=== PATIENT | male | born 1965 | race Two or more races ===

== ENCOUNTER 2021-04-02 11:33 | Emergency (ER) | payer MEDICAID ==
[~2021-04-02] VITALS: Ht 162.6 cm; Wt 80.7 kg
[2021-04-02 11:45] VITALS: BP_SYST 184
--- NOTE | 2021-04-02 11:45 | NUR ---
Pt to bed 5 for evaluation. Report given to RONNIE Mckay who will assume care.
--- NOTE | 2021-04-02 11:46 | NUR ---
Came in ER ambulatory this 55 year old, male, c/o pain at left face [id number] radiating to the left side of the nape, hx of Bels palsy. Alert, orientedx4, respiration even/unlabored, no acute distress noted, skin warm/dry, steady gait. w/ left face deviation secondary to disease process.
--- NOTE | 2021-04-02 12:10 | NUR ---
Seen and examined by Dr. Dennison
--- NOTE | 2021-04-02 13:08 | NUR ---
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
[2021-04-02 13:18] LABS: BASOPHILS # (AUTO) 0.1 K/uL (0.0-0.2); BASOPHILS % (AUTO) 0.9 % (0.0-2.0); EOSINOPHILS # (AUTO) 0.1 K/uL (0.0-0.4); EOSINOPHILS % (AUTO) 1.2 % (0.0-4.0); HEMATOCRIT 43.6 % (36-54); HEMOGLOBIN 15.1 g/dL (14.0-18.0); LYMPHOCYTES # (AUTO) 1.7 K/uL (1.0-5.5); MEAN CORPUSCULAR HEMOGLOBIN 31 pg (27-31); MEAN CORPUSCULAR HGB CONC 35 % (32-36); MEAN CORPUSCULAR VOLUME 88 fL (79.0-98.0); MONOCYTES # (AUTO) 0.7 K/uL (0.0-1.0); MONOCYTES % (AUTO) 8.5 % (1.7-9.3); NEUTROPHILS # (AUTO) 5.6 K/uL (1.8-7.7); NEUTROPHILS % (AUTO) 68.4 % (40.0-70.0); PLATELET COUNT (AUTO) 322 K/uL (130-430); RED BLOOD CELL COUNT(AUTO) 4.94 MIL/uL (4.2-6.2); RED CELL DISTRIBUTION WIDTH 14.8 % (9.0-15.0); WHITE BLOOD COUNT (AUTO) 8.2 K/uL (4.8-10.8)
[2021-04-02 13:44] LABS: ANION GAP 11 (5-15); CALCIUM 8.5 mg/dL (8.4-11.0); CHLORIDE 103 mmol/L (98-107); CREATININE 1.06 mg/dL (0.55-1.30); GLUCOSE 104 mg/dL (70-99); POTASSIUM 4.3 mmol/L (3.5-5.1); SODIUM SERUM 139 mmol/L (136-145); UREA NITROGEN, BLOOD 24 mg/dL (8-21)
[2021-04-02 13:48] LABS: ALANINE AMINOTRANSFERASE 76 U/L (12-78); ALBUMIN 4.2 g/dL (3.4-4.8); ASPARTATE AMINOTRANSFERASE 33 U/L (10-37); TOTAL BILIRUBIN 0.3 mg/dL (0.0-1.0)
[2021-04-02 13:51] LABS: GFR AFRICAN AMERICAN 94 mL/min (>90)
[2021-04-02 13:52] LABS: C-REACTIVE PROTEIN QUANT < 0.2 mg/dL (0-0.5)
--- NOTE | 2021-04-02 14:16 | NUR ---
Patient transported to radiology via wheelchar, accompanied by project management intern.
--- NOTE | 2021-04-02 14:25 | NUR ---
Returned from radiology, [facility].
[2021-04-02] MEDS ORDERED: PRED20TA PO (15:08)
[2021-04-02] MEDS ORDERED: IBUP-1971 PO (15:08)
[2021-04-02] MEDS ORDERED: HYDR-3917 PO (15:08)
[2021-04-02 15:42] VITALS: BP_SYST 128
--- NOTE | 2021-04-02 15:42 | NUR ---
Patient given written and verbal discharge instructions and verbalizes understanding. ER MD discussed with patient the results and treatment provided. Patient in stable condition. ID arm band removed. Rx of norco, motrin, prednisone given. Patient educated on pain management and to follow up with PMD. Pain Scale 0/10. Opportunity for questions provided and answered. Medication side effect fact sheet provided.
== END 2021-04-02 15:42 | disposition home or self-care (01) ==
LOC: SED 11:33
DX: G51.0 Bell's palsy (principal); B02.29 Other postherpetic nervous system involvement; R51.9 Headache, unspecified; Z88.6 Allergy status to analgesic agent; Z79.899 Other long term (current) drug therapy
CPT/HCPCS: 36415; 70450-TC; 76376; 80053; 85025; 86140; 99284